=== PATIENT | female | born 1970 ===

== ENCOUNTER 2020-05-23 15:13 | Outpatient (CLI) | payer OTHER ==
[2020-05-23 16:18] VITALS: BP 146/86
--- NOTE | 2020-05-23 16:18 | SLEEP CARE CONSULTATION ---
Information from patient questionnaire entered by Amaury Rosales. I have reviewed and concur with the information entered by Amaury Rosales. This document represents the service I personally performed and the decisions made by me, Lori Alcantara ARNP. History of Present Illness Service Date and Time: 05/23/2020 1513 Reason for Visit: New patient Chief Complaint: reports: Unrefreshed sleep, Snoring, Frequent awakenings at night. denies: Excessive daytime sleepiness, Observed pauses in breathing, Fatigue Date of Onset: ~ 1 year Usual bedtime: 9 PM Time it takes to fall asleep: 15 - 30 minutes Snores at night: Yes (when I sleep on my back) Observed to quit breathing while asleep: No Sleeps alone due to snoring: No Number of times waking at night: 1 - 2 x tossing Reasons for waking at night: reports: Snoring, Gasping for air (only when on her back for sleep), Other (toss and turn). denies: Choking Toss, Turn, or Twitch while sleeping: Yes Recalls having dreams: Yes (sometimes) Usually gets out of bed at: 5 AM Feels refreshed in the morning: No Morning headache: No Sleepy or fatigued during the day: No Ever fallen asleep while driving: No Takes day naps: No (sometimes/weekend) Dreams during day naps: No Prior sleep studies: No Additional HPI information: I had the pleasure of seeing THOR WILL today regarding the possibility of her having a sleep disorder. Her current complaints are frequent night awakenings and snoring. Patient states that back in November she woke up with pressure in chest and ended up in the emergency room. She was found to have high blood pressure and was eventually referred to a repairer shoe sticks. She was started on blood pressure medication for her high blood pressure. When she saw the repairer shoe sticks, he told her that she had sleep apnea and referred her for a sleep test. She is not sure that she has it because she does not feel very sleepy during the day and she has no observed pauses in breahing. She does feel that this last year has been a s tressful time at her job. She is also tossing and turning through the night, most nights. There is no family history of sleep apnea. - Parasomnia Symptoms Ever been unable to move upon waking from sleep: No Walks in sleep: No Talks in sleep: No Ever acted out dreams in sleep: No Ever felt weak in the knees when startled or emotional: No Bothered by creepy, crawly, restless sensations in legs: No Problems with memory or concentration: No Subjective Initial [place] Sleepiness Scale score: 9 (in 2020) Past Medical History Past Medical History: reports: Hypertension, Other (she has bradycardia, normal for her). 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 Patient is and lives in [place]. Have you smoked in the past 12 months: No Alcohol use: Yes Alcohol amount and frequency: 1-2 glasses daily Caffeine use: Yes Caffeine amount and frequency: 1 x day Family History Family history of sleep disordered breathing: No Family Hx Sleep Apnea: Father: Snoring Allergies and Home Medications Drug allergies reviewed: Yes (penicillin) Home medication list reviewed: Yes Allergy and home medication list: HCTZ Losartan 25 mg Review of Systems Weight gain over past 5 years: 20 Weight loss over past 5 years: 20 Cardiovascular: reports: high blood pressure, palpitations, chest pain, other (bradycardia). denies: irregular heart rate or pulse Respiratory: denies: shortness of breath Gastrointestinal: denies: heartburn Neurological: denies: headaches, seizure, head trauma Psychiatric: denies: anxiety, depression, claustrophobia Ear/Nose/Throat: reports: nasal congestion (seasonal allergies), wisdom teeth removed. denies: dry mouth/throat, tonsillectomy Immunologic: reports: sneezing (seasonal), allergies to food or environment (seasonal) Physical Exam Blood Pressure: 146/86 Cuff size: wrist Heart Rate: 40 O2 Saturation: 99 Height: 6 ft Weight: 233 lb (with boots on) Body Mass Index: 31.6 BMI Classification: Obese Neck circumference: 14.5 (inches) Nostrils: patent to airflow Turbinates: swollen Septum: midline Mouth and throat: narrow oropharynx Soft palate: long Uvula visualization: 50% Mallampati Class II Tongue: enlarged in size with teeth james on lateral edges Tonsils: 2+ Chin and jaw: normal size and position Neck: normal w/o lymphadenopathy or thyromegaly Heart: regular rate and rhythm Lungs: clear bilaterally Impression and Plan 1. Suspected Obstructive Sleep Apnea-Hypopnea Syndrome, as suggested by a history of loud and irregular snoring, gasping or choking in sleep, frequent awakening during the night, and unrefreshed sleep. I reviewed with patient that a narrow oropharynx and obesity are common predisposing factors for obstructive sleep apnea-hypopnea syndrome. I recommend proceeding to polysomnography to confirm the diagnosis and to assess severity. If the patient has significant sleep disordered breathing, a manual CPAP titration study will also be performed to find the optimal treatment pressure. I informed the patient of what the sleep studies involve and after some discussion, obtained agreement to proceed. The pathophysiology of obstructive sleep apnea-hypopnea syndrome was discussed with the patient and health risks of cardiovascular and cerebrovascular disease if not treated. AAS brochure for obstructive sleep apnea-hypopnea syndrome given and reviewed. Risks of drowsy driving discussed in detail and patient advised to avoid long distance driving and to dust puller at the first sign of drowsiness. Patient agreed to plan. * Schedule polysomnography +- manual CPAP titration study and return in 1-2 weeks after the study to discuss result and initiate therapy. * Avoid long distance driving or driving when feeling sleepy. * Avoid alcohol, sedative and muscle relaxant around bedtime. * Attempt to lose weight. * Review instructions provided by trained office staff on how to prepare for the sleep study. * Return for follow-up after sleep study completed. Counseling Topics: Weight loss health impact Visit Type: In Office Time Spent with Patient (minutes): 32 Provider Statement: I spent 100% of the Face to Face Visit with the patient with greater than 50% spent counseling the patient and coordination of care.
== END 2020-05-23 15:14 | disposition home or self-care (01) ==
LOC: SC 15:13
PROVIDERS: ATTEND Nurse Practitioner Family
DX: G47.8 Other sleep disorders (principal); R06.83 Snoring; I10 Essential (primary) hypertension; E66.9 Obesity, unspecified; Z68.31 Body mass index [BMI] 31.0-31.9, adult
CPT/HCPCS: 99203; 99212

== ENCOUNTER 2020-07-07 13:52 | Outpatient (CLI) | payer OTHER | END 2020-07-07 13:53 | disposition home or self-care (01) | LOC: SC 13:52 | PROVIDERS: ATTEND Nurse Practitioner Family | DX: G47.8 Other sleep disorders (principal); R06.83 Snoring; I10 Essential (primary) hypertension | CPT/HCPCS: 95806 ==

== ENCOUNTER 2020-07-19 14:44 | Outpatient (CLI) | payer OTHER ==
--- NOTE | 2020-07-19 15:21 | SLEEP CARE CONSULTATION ---
Information from patient questionnaire entered by Amaury Rosales. I have reviewed and concur with the information entered by Amaury Rosales. This document represents the service I personally performed and the decisions made by , Lori Alcantara ARNP. History of Present Illness Service Date and Time: 07/19/2020 1444 Initial [place] Sleepiness Scale score: 9 (in 2019) Current [place] Sleepiness Scale score: 4 Additional HPI information: THOR WILL returns for follow up and results of the recently performed home sleep study. The patient was informed of the following findings: no significant sleep disordered breathing with an average AHI of 3.1 and babatunde oxygen saturation of 87%. Her supine AHI is elevated at 6.8 and non-supine AHI was 1.03. I explained the pathophysiology behind obstructive sleep apnea. Patient does not have sleep apnea and was advised how weight gain could increase the risk of developing sleep apnea in the future. Patient does not have significant sleep disordered breathing but has elevated AHI in supine position so advised positional therapy. Methods to achieve positional management therapy were discussed; such as, positioning with pillows, wearing a T-shirt with tennis balls sewn into the back, Rematee shirt, Zzomba belt and Slumberbump belt. Pamphlets provided on how to obtain the commercially available products. Patient has light snoring. Snoring can be reduced by weight loss. Weight loss is best achieved with diet consult. Patient instructed to contact PCP for referral. Snoring can also be treated with an oral appliance from a dentist. Advised to check insurance coverage. In addition, an ENT evaluation can be do to see if other treatment is indicated. Patient counseled not drink alcohol less than 4 hours before bedtime as it can increase snoring and apnea. Patient was cautioned about risks of drowsy driving until sleepiness symptoms resolve. Sleep Study - Results Type of Sleep Study: Home sleep study Prior sleep studies: No Polysomnography/Home Sleep Study results: Physician Impression: The quality of the study is good. The length of the study is adequate (> 240 minutes). Please also see the tabulated and graphic data. 1. No significant sleep disordered breathing, with an AHI of 3.1/hr and babatunde SaO2 of 87%. During the study, the patient had 9 apneas (9 obstructive, 0 central, 0 mixed) and 15 hypopneas. The longest episode lasted 43.5 seconds. The few respiratory events occurred almost exclusively during supine sleep (supine AHI was 6.8 and non-supine, 1.03). 2. Hypoxemia (ICD-10 R09.02), minimal, with the lowest oxygen saturation of 87 % and 2.2 minutes with SaO2 under 90%. Baseline oxygen saturation was normal (Average oxygen saturation was 92%). Allergies and Home Medications Drug allergies reviewed: Yes (amoxicillin) Home medication list reviewed: Yes (no changes) Review of Systems Review of systems same as previous: Yes (no changes) Physical Exam Heart Rate: 54 O2 Saturation: 98 Height: 6 ft Weight: 231 lb Body Mass Index: 31.3 BMI Classification: Obese Impression and Plan 1. Snoring but no significant sleep disordered breathing. Patient advised that often weight loss will reduce snoring as well as apnea risk. An oral appliance can also be used for snoring. This would require a dental consultation. Patient cautioned not to use other online appliances as can cause bite issues. Patient is advised to check if insurance will cover. An ENT consult can also be helpful to determine if any other treatment is an option. Since patients supine AHI is elevated at 6.8, patient advised to try positional therapy and agreed with plan. * Attempt to lose weight and maintain a healthy weight * Avoid alcohol consumption near bedtime * The patient is cautioned about driving until sleepiness is completely resolved. * Return as needed Counseling Topics: Weight loss health impact Visit Type: In Office Time Spent with Patient (minutes): 14 Provider Statement: I spent 100% of the Face to Face Visit with the patient with greater than 50% spent counseling the patient and coordination of care.
== END 2020-07-19 14:45 | disposition home or self-care (01) ==
LOC: SC 14:44
PROVIDERS: ATTEND Nurse Practitioner Family
DX: R06.83 Snoring (principal); E66.9 Obesity, unspecified; Z68.31 Body mass index [BMI] 31.0-31.9, adult
CPT/HCPCS: 99212

== ENCOUNTER 2022-03-19 07:06 | Outpatient (CLI) | payer OTHER ==
--- NOTE | 2022-03-19 09:35 | MRI Report ---
PROCEDURE: SHOULDER WO - LT INDICATIONS: PAIN IN SHOULDR TECHNIQUE: Noncontrast oblique coronal T2 fast spin echo with fat saturation, oblique sagittal T1 spin echo and T2 fast spin echo with fat saturation, axial T1 spin echo and T2 fast spin echo with fat saturation t hrough the shoulder. COMPARISON: None. FINDINGS: Image quality: Excellent Rotator cuff Bulk: No significant atrophy Teres minor: Intact Supraspinatus: Partial-thickness tear of the articular surface. Superimposed tendinosis. Infraspinatus: Partial-thickness tear at the insertion on the articular surface. Superimposed tendino sis. Subscapularis: Tendinosis and interstitial tears at the insertion. Bones and bursae GH joint: Overall mild degenerative changes without full-thickness cartilage defect. AC joint: Mild to moderate degenerative changes Humeral head: No acute fracture Scapula and acromion: No acute fracture Bursa: Trace edema Capsule Labrum: Evaluation is limited on this non-arthrographic MRI, within this limitation: There is a suspe cted superior labral tear, that includes the region of the biceps Long head biceps tendon: Intra-articular tendinosis is suspected. IGHL: Intact Rotator interval: Fat signal is preserved Soft tissues: No axillary adenopathy. Lungs are not well seen. IMPRESSION: Suspected superior labral tear on this nonarthrographic MRI. Partial-thickness articular sided tears of the superior cuff. Superimposed tendinosis. Reviewed by: Selwyn Silva MD on 03/19/2022 9:33 AM PDT Approved by: Selwyn Silva MD on 03/19/2022 9:33 AM PDT Station ID: [id number]
== END 2022-03-19 07:07 | disposition home or self-care (01) ==
LOC: DI 07:06
PROVIDERS: ATTEND Family Medicine
DX: M75.112 Incomplete rotator cuff tear or rupture of left shoulder, not specified as traumatic (principal)

== ENCOUNTER 2022-09-19 16:36 | Outpatient (CLI) | payer OTHER | END 2022-09-19 23:59 | disposition short-term general hospital (02) | LOC: EMS 16:36 | DX: S99.912A Unspecified injury of left ankle, initial encounter (principal); W01.0XXA Fall on same level from slipping, tripping and stumbling without subsequent striking against object, initial encounter; Y93.01 Activity, walking, marching and hiking; Y92.830 Public park as the place of occurrence of the external cause | CPT/HCPCS: A0425; A0429 ==